=== PATIENT | female | born 1955 | race Caucasian/White ===

== ENCOUNTER 2018-09-24 09:52 | Outpatient (CLI) | payer BC, SELFPAY ==
--- NOTE | 2018-09-24 10:10 | DI.NM_ITS ---
SYMPTOMS/DIAGNOSIS: BILIARY DYSKINESIA, K82.8 CCK-HIDA SCAN: CCK-HIDA scan was performed with intravenous infusion of 5.1 mCi of technetium 99 labelled Mebrofenin. Following injection of radiopharmaceutical, there was prompt homogeneous hepatic uptake and prompt uptake in bile ducts, small intestine and gallbladder. 1.5 mcg of cholecystokinin was injected intravenously. Gallbladder ejection fraction is calculated at 79%, which is in the normal range. The patient experienced mild right upper quadrant pain on injection of cholecystokinin, but this resolved. CONCLUSION: Negative CCK-HIDA study.
== END 2018-09-24 10:12 ==
PROVIDERS: PCP Internal Medicine; Visit Provider Surgery
DX: K82.8 Other specified diseases of gallbladder (principal)
CPT/HCPCS: 78227